=== PATIENT | female | born 1975 | race Two or more races ===

== ENCOUNTER 2022-06-13 21:39 | Emergency (ER) | payer MEDICAID, OTHER | END 2022-06-13 22:30 | disposition left against medical advice (07) | LOC: ER 21:39 | DX: M54.6 Pain in thoracic spine (principal); Z53.21 Procedure and treatment not carried out due to patient leaving prior to being seen by health care provider ==

== ENCOUNTER 2023-01-01 02:33 | Emergency (ER) | payer MEDICAID ==
[~2023-01-01] VITALS: Ht 167.6 cm; Wt 74.0 kg
[2023-01-01 03:06] VITALS: BP 129/74
== END 2023-01-01 07:29 | disposition left against medical advice (07) ==
LOC: ER 02:33
DX: R51.9 Headache, unspecified (principal); M79.602 Pain in left arm; R35.0 Frequency of micturition; M54.50 Low back pain, unspecified; Z53.21 Procedure and treatment not carried out due to patient leaving prior to being seen by health care provider

== ENCOUNTER 2024-01-06 14:15 | Emergency (ER) | payer MEDICAID ==
[~2024-01-06] VITALS: Ht 162.6 cm; Wt 77.0 kg
[2024-01-06 15:23] VITALS: BP 135/65; PULSE 90; RESP 16; O2SAT 99
[2024-01-06] MEDS ORDERED: DICY10CA PO (16:09)
[2024-01-06] MEDS ORDERED: PHENSUP38 PR (16:09)
== END 2024-01-06 17:00 | disposition left against medical advice (07) ==
LOC: ER 14:15
DX: K59.00 Constipation, unspecified (principal); K64.9 Unspecified hemorrhoids; Z88.0 Allergy status to penicillin

== ENCOUNTER 2025-01-16 17:21 | Emergency (ER) | payer MEDICAID ==
[~2025-01-16] VITALS: Ht 160 cm; Wt 80.0 kg
[~2025-01-16 17:21] MED LIST: DICY10CA PO; PHENSUP38 PR
[2025-01-16 17:47] LABS: Basophils # (auto) 0 10 ^3/uL (0-0.2); Eosinophils # (auto) 0 10 ^3/uL (0-0.8); Eosinophils % (auto) 0.9 % (0.0-7.0); Hemoglobin 12.6 g/dL (12.2-16.2); Lymphocytes # (auto) 1.7 10 ^3/uL (0.4-5.4); Monocytes # (auto) 0.4 10 ^3/uL (0-1.3); Nucleated Red Blood Cells % 0.1 %; White Blood Cell 4.8 10^3/uL (4.4-10.8)
[2025-01-16 17:49] LABS: Basophils % (auto) 0.4 % (0.0-2.0); Hematocrit 38.1 % (36.0-46.0); Lymphocytes % (auto) 36.3 % (10.0-50.0); Mean Corpuscular Hemoglobin 26.4 pg (28.0-32.0); Mean Corpuscular Volume 80.1 fL (80.0-100.0); Monocytes % (auto) 8.4 % (0.0-12.0); Neutrophils # (auto) 2.6 10 ^3/uL (1.6-8.6); Platelet Count (auto) 234 10^3/uL (140-450); Red Blood Cells 4.76 10^6/uL (4.0-5.20); Red Cell Distribution Width 17.1 % (11.8-14.3)
--- NOTE | 2025-01-16 17:51 | ED.PDOC ---
HPI Comments 50y F who presents to the ED for chief complaint of chest pain. Pt has the following ED course. - pt states she has been having chest pain since 1000 this AM. - pt states she has been having L sided, intermittent, stabbing chest pain, non- radiating, rating the pain 6/10 with no associated exacerbating or relieving factors - pt denies any associated symptoms but otherwise denies shortness of breath, diaphoresis, palpitations, headache, or dizziness. PMH: hyperlipidemia, ovarian cyst PSH: denies Allergies: penicillin Social history: denies tobacco use, denies ETOH use, denies drug use HPI: Poor Historian. REVIEW OF SYSTEMS: CONSTITUTIONAL: Denies acute: fever, diaphoresis, chills, generalized weakness. HEAD: Denies acute: headache, photophobia Eyes: Denies acute: Double vision, vision loss, eye pain, eye discharge. EARS: Denies acute: tinnitus, hearing loss, ear discharge, ear pain, THROAT: Denies acute: sore throat, swelling, difficulty swallowing , pain with swallowing, change in voice. NECK: Denies acute: neck pain, neck swelling, stiff neck. HEART: Denies acute : palpitations, LUNGS: Denies acute: SOB, wheezing, cough, hemoptysis ABDOMEN: Denies acute: abdominal pain, Nausea, Vomiting, diarrhea, melena , hematemesis, hematochezia SKIN: Denies acute: rash, redness, lesions, itchiness. EXTREMITIES: Denies acute: calf pain, numbness, tingling, weakness, denies pain in extremity. Denies acute: Low back pain. Neuro: Denies acute: focal neurological deficit, motor or sensory focal neurological deficit, tremors, seizure like activity, confusion, dizziness, change in mental status, loss of bowel or bladder function, cauda equina like symptoms. : Denies acute: dysuria, hematuria, flank pain, increase in urinary frequency. PSYCH: Denies acute: hallucination, suicidal ideation, homicidal ideation. FEMALE: Denies acute: abnormal vaginal bleeding, foul odor, unusual discharge. PHYSICAL EXAM: General: no acute distress, awake and alert. Head: normocephalic, atraumatic. Neck: supple, trachea is midline, no swelling. Throat: Normal phonation. Eyes:, no erythema, no purulent discharge, no proptosis, no icterus. Heart: regular rate, regular rhythm, no significant murmur appreciated. Lungs: no apparent respiratory distress, Able to speak in full sentences. No wheezing, no rhonchi, no crackles. No stridors Clear to auscultation bilaterally. Abdomen: non tender to palpation, non distended, soft, no guarding, no rebound, + bowel sounds. Neuro: Awake, Alert, oriented to name, self, situation, follows commands GCS=15. Speech is normal. Skin: no petechia, no purpura, no cyanosis, non-pale, not jaundice. Lower extremities: --trace - Pitting edema no deformity, no focal swelling, no calf TTP. Makes eye contact. moves all four extremities. Face: no apparent facial droop. Ambulating in the ED independently. ED COURSE: Chief Complaint: Chest Pain Time Seen by MD: 17:50 Primary Care Provider: GLEN Agarwal Notes: Nurses Notes, Medications, Allergies Allergies: Coded Allergies: Penicillins (Verified Allergy, Unknown, 01/01/23) Home Meds Active Scripts Phenylephrine-Shark Liver Oil- (Hemorrhoidal Suppositorie 0.25-3-85.5 %) 1 Sup Sup, 1 SUP IN BID, #20 SUPP Prov:AYAH FIGUEROA PAC 01/06/24 Dicyclomine Hcl (BENTYL CAPSULE) 10 Mg Cp, 1 CAP PO TID, #20 CAP 0 Refills Prov:AYAH FIGUEROA PAC 01/06/24 Information Source: Patient Mode of Arrival: Ambulatory Brought in by: self Past Medical History PAST MEDICAL HISTORY: Denies Surgical History: Denies all surgeries MANAGER EMS History: No Pertinent MANAGER EMS History Family History Family History: Reviewed,noncontributory to illness, No family hx of Cancer, No family hx of DM, No family hx of Heart octavio, No family hx of HTN, No family hx ofKidney octavio, No family hx of Liver octavio, No family hx of Lung octavio, No family hx of Stroke Social History Smoker: Non-Smoker Alcohol: Denies ETOH Use Drugs: Denies Drug Use Lives In: Home Was a procedure done? Was a procedure done?: No CP Differential Dx Differential Diagnosis: N/A Differential Diagnosis: Other (Ddx include but not limitied to gastritis, musculoskeletal pain, radiculopathy, atypical chest pain, dissection, aneurysm, ACS, unstable angina, hiatal hernia, GERD, anxiety, costochondritis, PE, pneumothroax, neoplasm, cardiac ischemia, drug abuse, anemia.) X-Ray, Labs, Meds, VS Vital Signs Date Time Temp Pulse Resp B/P (MAP) Pulse Ox O2 Delivery O2 Flow Rate FiO2 01/16/25 19:49 96 16 97 Room Air* 0 21 01/16/25 19:23 128/60 01/16/25 19:20 97.7 96 16 128/60 (82) 97 97.7 01/16/25 18:26 97.9 82 16 140/76 (97) 99 97.9 01/16/25 18:26 82 16 99 Room Air* 0 21 01/16/25 18:23 140/76 01/16/25 17:33 86 01/16/25 17:22 97.9 88 20 128/86 (100) 99 97.9 Lab Test 01/16/25 18:36 01/16/25 17:35 Range/Units Troponin I High Sensitivity < 3 L < 3 L </=34 ng/L White Blood Count 4.8 4.4-10.8 10^3/uL Red Blood Count 4.76 4.0-5.20 10^6/uL Hemoglobin 12.6 12.2-16.2 g/dL Hematocrit 38.1 36.0-46.0 % Mean Corpuscular Volume 80.1 80.0-100.0 fL Mean Corpuscular Hemoglobin 26.4 L 28.0-32.0 pg Mean Corpuscular Hemoglobin Concent 33.0 32.0-36.0 g/dL Red Cell Distribution Width 17.1 H 11.8-14.3 % Platelet Count 234 140-450 10^3/uL Mean Platelet Volume 7.3 6.9-10.8 fL Neutrophils (%) (Auto) 54.0 37.0-80.0 % Lymphocytes (%) (Auto) 36.3 10.0-50.0 % Monocytes (%) (Auto) 8.4 0.0-12.0 % Eosinophils (%) (Auto) 0.9 0.0-7.0 % Basophils (%) (Auto) 0.4 0.0-2.0 % Neutrophils # (Auto) 2.6 1.6-8.6 10 ^3/uL Lymphocytes # (Auto) 1.7 0.4-5.4 10 ^3/uL Monocytes # (Auto) 0.4 0-1.3 10 ^3/uL Eosinophils # (Auto) 0 0-0.8 10 ^3/uL Basophils # (Auto) 0 0-0.2 10 ^3/uL Nucleated Red Blood Cells 0.1 % D-Dimer, Quantitative 0.19 0.0-0.49 mg/L FEU Sodium Level 141 136-145 mmol/L Potassium Level 3.8 3.5-5.1 mmol/L Chloride Level 107 98-107 mmol/L Carbon Dioxide Level 27 20-31 mmol/L Anion Gap 7 5-15 Blood Urea Nitrogen 10 9-23 mg/dL Creatinine 0.60 0.550-1.02 mg/dL Glomerular Filtration Rate Calc 110 >90 mL/min BUN/Creatinine Ratio 16.7 10.0-20.0 Serum Glucose 123 H 74-106 mg/dL Calcium Level 10.4 8.7-10.4 mg/dL Total Bilirubin 0.3 0.2-1.0 mg/dL Aspartate Amino Transferase (AST) 32 13-40 U/L Alanine Aminotransferase (ALT) 51 H 7-40 U/L Alkaline Phosphatase 76 46-116 U/L Total Protein 7.8 5.7-8.2 g/dL Albumin 5.0 H 3.2-4.8 g/dL Lipase 31 12-53 U/L Current Medications Medications (Trade) Dose Ordered Sig/Roel Route Start Time Stop Time Status Last Admin Aspirin (Ecotrin Enteric Coated Tablet) 325 mg ONCE ONCE PO 01/16/25 17:45 01/16/25 17:46 DC 01/16/25 18:23 Nitroglycerin (Ntrostat Sublingual) 0.4 mg ONCE ONCE SL 01/16/25 17:45 01/16/25 17:46 DC 01/16/25 18:[address] [address] Ph: [phone] DIAGNOSTIC IMAGING Diagnostic Imaging Report : [id number] Signed PATIENT: ELLE VAZQUEZ: [id number] UNIT: [id number] : 1975 LOC: ER ROOM / BED: / AGE / SEX: 50 / F ADM STATUS: REG ER SERVICE [id number] ORDERING PHYSICIAN: POONAM AYALA DO PROCEDURE(s): CXRP - CHEST PORTABLE REASON: cp ORDER NUMBER(s): [id number], ACCESSION NUMBER(s): [id number] CHEST RADIOGRAPH Indication: cp Technique: Single frontal view of the chest was obtained Comparison: None FINDINGS: Lines and Tubes: None Lungs: No focal consolidation. Pleura: No effusion. No pneumothorax. Cardiomediastinal contours: Unremarkable Bones: No acute osseous abnormality. IMPRESSION: No acute cardiopulmonary disease. ATED BY: LEATHA HEARD DO DICTATED DATE/TIME: 01/16/251817 SIGNED BY: LEATHA HEARD DO SIGNED DATE/TIME: 01/16/251817 CC: Time of 1ST Reevaluation: 20:04 Reevaluation 1ST: Improved Patient Education/Counseling: Diagnosis, Treatment Family Education/Counseling: No Family Present Comments Patient presented with the above HPI.---cardiac---workup was initiated. patient was found with the above mentioned diagnosis. the following medications were ordered: please refer to order lists of meds and tests obtained by myself Dr. Ayala. Patient ED course and VS have been stabilized. Patient has been reassessed in the ED and remained in a stable condition. Pertinent incidental findings were discussed with the patient and/or family. Patient/family voices understanding and is agreeable with plan. Patient has been observed in the ED adequate length of time to insure improvement/stability. Escalation of care considered: Consideration of escalation to observation or admission Patient was ADMITTED to the medicine team for further evaluation and treatment of their presentation. All the reports of any imaging studies that were ordered by myself were reviewed by myself. Departure 1 Departure Time of Disposition: 18:09 Impression: Primary Impression: Chest pain Disposition: ADMITTED INPATIENT Admit to: [facility] Condition: Guarded Discharged With: Self Critical Care Note Critical Care Time?: No Heart Score Heart Score: Heart Score Response (Comments) Value History Moderate Suspicious 1 EKG Normal 0 Age <45 0 Risk Factors 1 or 2 risk factors 1 Troponin Normal limit 0 Total 2 I personally scribed for POONAM AYALA DO ([email or web address]) on 01/16/25 at 17:51. Electronically submitted by Alis Pollard ([email or web address]). POONAM AYALA DO Jan 16, 2025 17:51
[2025-01-16 18:21] LABS: Alkaline Phosphatase 76 U/L (46-116); Anion Gap 7 (5-15); Aspartate Aminotransferase 32 U/L (13-40); BUN/Creatinine Ratio 16.7 (10.0-20.0); Bilirubin, Total 0.3 mg/dL (0.2-1.0); Blood Urea Nitrogen 10 mg/dL (9-23); Calcium 10.4 mg/dL (8.7-10.4); Carbon Dioxide 27 mmol/L (20-31); Chloride 107 mmol/L (98-107); Lipase 31 U/L (12-53); Potassium 3.8 mmol/L (3.5-5.1); Sodium 141 mmol/L (136-145); Total Protein 7.8 g/dL (5.7-8.2)
--- NOTE | 2025-01-16 18:21 | DVH ---
CHEST RADIOGRAPH Indication: cp Technique: Single frontal view of the chest was obtained Comparison: None FINDINGS: Lines and Tubes: None Lungs: No focal consolidation. Pleura: No effusion. No pneumothorax. Cardiomediastinal contours: Unremarkable Bones: No acute osseous abnormality. IMPRESSION: No acute cardiopulmonary disease.
[2025-01-16] MEDS: NITROGLYCERIN 0.4 MG SL TAB SL ONE (18:23)
[2025-01-16] MEDS: ASPirin-EC 325mg tab PO ONE (18:23)
[2025-01-16 18:26] VITALS: PULSE 82; RESP 16; O2SAT 99
[2025-01-16 19:09] LABS: Alanine Aminotransferase 51 U/L (7-40); Glucose 123 mg/dL (74-106)
[2025-01-16 19:20] VITALS: BP 128/60; TEMP 97.7
[2025-01-16 19:49] VITALS: PULSE 96; RESP 16; O2SAT 97
[2025-01-16 20:30] VITALS: PULSE 89
[2025-01-16] MEDS ORDERED: ACETAMINOPHEN 325 MG TAB PO PRN (20:45)
[2025-01-16] MEDS ORDERED: MORPHINE SULFATE INJ 2 MG/ml SYRG IV PRN (20:45)
[2025-01-16] MEDS ORDERED: ONDANSETRON HCL 4 MG/2 ML VIAL IV PRN (20:45)
[2025-01-16] MEDS ORDERED: HYDROcodone-ACET 5/325MG TAB PO PRN (20:45)
[2025-01-16] MEDS ORDERED: DOCUSATE SOD 100 MG CAP PO PRN (20:45)
[2025-01-16] MEDS ORDERED: ATORVASTATIN 20 MG TAB PO SCH (22:00)
[2025-01-16] MEDS ORDERED: SODIUM CHLOR 0.9% PF (SALINE LOCK) 10ML VIAL/SYR IV SCH (22:00)
[2025-01-17] MEDS ORDERED: ASPirin 81 mg TAB PO SCH (10:00)
--- NOTE | 2025-01-17 12:29 | ECG ---
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
--- NOTE | 2025-01-17 12:30 | ECG ---
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
== END 2025-01-16 22:49 | disposition left against medical advice (07) ==
LOC: ER 17:21
DX: R07.89 Other chest pain (principal); E78.5 Hyperlipidemia, unspecified; Z88.0 Allergy status to penicillin; Z79.899 Other long term (current) drug therapy
CPT/HCPCS: 36415; 71045; 80053; 83690; 84484; 85025; 85379; 93005